=== PATIENT | female | born 1950 ===

== ENCOUNTER → 2018-05-08 19:36 | Outpatient (REF) | payer OTHER, SELFPAY ==
[2018-05-08 22:26] LABS: Albumin 4.5 g/dL (3.5-5.0); BUN Creatinine Ratio 17.5 (6-22); Blood Urea Nitrogen 21 mg/dL (7-17); Calcium 10.1 mg/dL (8.4-10.2); Carbon Dioxide 27 mmol/L (22-32); Chloride 106 mmol/L (98-107); Estimated Glomerular Filt Rate 44.8 mL/min (>60); Glucose 102 mg/dL (80-110); HEMOLYSIS < 15 (0-50); Potassium 4.4 mmol/L (3.4-5.1); Sodium 143 mmol/L (137-145)
[2018-05-09 03:45] LABS: Triiodothryronine T3 Uptake 29.7 % (23.5-40.5)
[2018-05-12 14:53] LABS: Anti Thyroglobulin Antibody < 1 IU/mL (< 2); Thyroid Peroxidase Antibodies < 1 IU/mL (< 9)
[2018-05-12 16:38] LABS: Triiodothyronine T3 Total 124 ng/dL (76-181)
== END ==
LOC: LAB 19:36
PROVIDERS: Visit Provider Naturopath
DX: N18.2 Chronic kidney disease, stage 2 (mild) (principal)
CPT/HCPCS: 80069; 84439; 84443; 84479; 84480; 84481; 86376; 86800